=== PATIENT | female | born 1950 | race Caucasian/White ===

== ENCOUNTER 2018-11-25 15:49 | Emergency (ER) | payer BC ==
[2018-11-25] MEDS ORDERED: Ondansetron 4 MG Tab.DIS PO ONE (16:04)
--- NOTE | 2018-11-25 16:31 | EDM.PDOC ---
ED HPI GENERAL MEDICAL PROBLEM - General Chief Complaint: Gastrointestinal Problem Stated Complaint: VOMITING Time Seen by Provider: 11/25/18 16:04 Source of Information: Reports: Patient, RN Notes Reviewed History Limitations: Reports: No Limitations - History of Present Illness INITIAL COMMENTS - FREE TEXT/NARRATIVE: Patient is a 67 year old female who presents to the ED for the evaluation of vomiting and nausea. The patient states that this is been present all day and she's not been able to keep much down for foods or fluids. She was seen at the walk-in clinic earlier this morning and diagnosed with a urinary tract infection was given a prescription for antibiotics but was afraid to take them as she was not able to keep any water down. She did try to go back to the walk- in clinic but they told her that she was not able to be seen twice in 1 day. The patient states she is not having any abdominal pain, chest pain, shortness of breath, fevers or chills. - Related Data Allergies Allergy/AdvReac Type Severity Reaction Status Date / Time tramadol Allergy Joint Pain Verified 11/25/18 16:00 Home Meds: Home Meds Buprenorphine HCl/Naloxone HCl [Suboxone 4 mg-1 mg Sl Film] 1 - 2 dose PO ASDIRECTED 03/12/18 [History] Thyroid [[place] Thyroid] 60 mg PO DAILY 03/12/18 [History] clonazePAM [Klonopin] 1 - 2 mg PO DAILY PRN 03/12/18 [History] traZODone HCl [Trazodone HCl] 50 mg PO DAILY 03/12/18 [History] Ondansetron [Zofran ODT] 4 mg PO Q8H PRN #12 tab.dis 11/25/18 [Rx] Past Medical History Genitourinary History: Reports: Other (See Below) Other Genitourinary History: Cystitis Musculoskeletal History: Reports: Back Pain, Chronic, Other (See Below) Other Musculoskeletal History: Neck discectomy Psychiatric History: Reports: Anxiety, Depression, Psych Hospitalization(s) Endocrine/Metabolic History: Reports: Hypothyroidism Hematologic History: Reports: Blood Transfusion(s) Dermatologic History: Reports: Other (See Below) Other Dermatologic History: Pilar cyst removed - Infectious Disease History Infectious Disease History: Reports: Hepatitis B - Past Surgical History Female Surgical History: Reports: Hysterectomy, Oophorectomy Social & Family History - Tobacco Use Smoking Status *Q: Never Smoker - Caffeine Use Caffeine Use: Reports: None - Recreational Drug Use Recreational Drug Use: No - Living Situation & Occupation Living situation: Reports: Occupation: Employed (Self-employed) ED ROS GENERAL - Review of Systems Review Of Systems: See Below Constitutional: Denies: Fever, Chills HEENT: Reports: No Symptoms Respiratory: Denies: Shortness of Breath Cardiovascular: Denies: Chest Pain Endocrine: Reports: No Symptoms GI/Abdominal: Reports: Nausea. Denies: Abdominal Pain, Constipation, Diarrhea, Vomiting : Reports: Dysuria (diagnosed with UTI, on ABX) Skin: Reports: No Symptoms Neurological: Reports: No Symptoms Psychiatric: Reports: No Symptoms Hematologic/Lymphatic: Reports: No Symptoms Immunologic: Reports: No Symptoms ED EXAM, GI/ABD - Physical Exam Exam: See Below Exam Limited By: No Limitations General Appearance: Alert, WD/WN, No Apparent Distress Eyes: Bilateral: Normal Appearance Respiratory/Chest: No Respiratory Distress, Lungs Clear, Normal Breath Sounds, No Accessory Muscle Use, Chest Non-Tender, Prolonged Expiration Cardiovascular: Regular Rate, Rhythm, No Murmur GI/Abdominal Exam: Normal Bowel Sounds, Soft, Non-Tender, No Distention, No Mass Extremities: Normal Inspection, Normal Capillary Refill Neurological: Alert, Oriented, Normal Cognition, No Motor/Sensory Deficits Psychiatric: Normal Affect, Normal Mood Skin Exam: Warm, Dry, Intact, Normal Color, No Rash Course - Vital Signs Last Recorded V/S: Last Vital Signs Temp 98.0 F 11/25/18 15:57 Pulse 88 11/25/18 15:57 Resp 16 11/25/18 15:57 BP 139/94 H 11/25/18 15:57 Pulse Ox 93 L 11/25/18 15:57 - Orders/Labs/Meds Meds: Medications Discontinued Medications Generic Name Dose Route Start Last Admin Trade Name Freq PRN Reason Stop Dose Admin Ondansetron HCl 4 mg 11/25/18 16:04 11/25/18 16:22 Zofran Odt PO 11/25/18 16:05 4 mg ONETIME ONE Administration - Re-Assessments/Exams Free Text/Narrative Re-Assessment/Exam: 11/25/18 16:28 Patient presents to the ED for the evaluation of nausea and vomiting. I did order 4 mg ODT Zofran for initial management. Upon initial exam, the patient states that she was able to take a drink water and this actually stay down. So she took her first dose antibiotics. But she is afraid that she might develop nausea overnight, so I will provide the patient with some tablets of Zofran for the next couple days. Departure - Departure Time of Disposition: 16:29 Disposition: Home, Self-Care 01 Condition: Fair Clinical Impression: Nausea and vomiting Qualifiers: Vomiting type: unspecified Vomiting Intractability: non-intractable Qualified Code(s): R11.2 - Nausea with vomiting, unspecified - Discharge Information *PRESCRIPTION DRUG MONITORING PROGRAM REVIEWED*: No *COPY OF PRESCRIPTION DRUG MONITORING REPORT IN PATIENT JOSÉ ANTONIO: No Prescriptions: Ondansetron [Zofran ODT] 4 mg PO Q8H PRN #12 tab.dis PRN Reason: Nausea Instructions: Nausea and Vomiting, Adult, [id number] Referrals: Lalita De La Rosa PA-C [Primary Care Provider] - Additional Instructions: You were evaluated in the ED today for your nausea and vomiting. You were given a antinausea medication called Zofran in the ED and were sent home with a prescription, please take as directed. This medication was electronically prescribed to the [facility] pharmacy located on [address]. Please take your antibiotics as previously prescribed. Please follow all other discharge instructions as set forth by the provider who diagnosed with your UTI. Please return to the ED if your symptoms should change or worsen
== END 2018-11-25 16:45 | disposition home or self-care (01) ==
LOC: JD.ED 15:49
DX: R11.2 Nausea with vomiting, unspecified (principal); F32.9 Major depressive disorder, single episode, unspecified; F41.9 Anxiety disorder, unspecified; Z88.5 Allergy status to narcotic agent; Z79.899 Other long term (current) drug therapy; Z90.710 Acquired absence of both cervix and uterus; Z90.722 Acquired absence of ovaries, bilateral
CPT/HCPCS: 99283; A9270

== ENCOUNTER 2019-10-21 09:16 | Emergency (ER) | payer BC ==
[2019-10-21] MEDS ORDERED: Sodium Chloride 0.9% 10 ML Syringe FLUSH PRN (09:49)
[2019-10-21] MEDS ORDERED: cefTRIAXone 2 GM in Sodium Chloride 0.9% 100 ML IV ONE (09:50)
--- NOTE | 2019-10-21 11:25 | EDM.PDOC ---
ED HPI GENERAL MEDICAL PROBLEM - General Chief Complaint: Lower Extremity Injury/Pain Stated Complaint: SENT FOR IV Time Seen by Provider: 10/21/19 09:36 Source of Information: Reports: Patient History Limitations: Reports: No Limitations - History of Present Illness INITIAL COMMENTS - FREE TEXT/NARRATIVE: The patient presents with right ankle redness and swelling. She said last week she developed pain and redness with swelling to her right knee. It then moved to her right ankle. She has no fever or chills. Her doctor wanted her to come over to be evaluated. She has no recent injury to the ankle or knee. She has no cough, chest pain, shortness of breath, abdominal pain, nausea or vomiting. Onset: Gradual Duration: Day(s): Location: Reports: Lower Extremity, Right (knee and then ankle) Quality: Reports: Sharp Severity: Moderate Improves with: Reports: Immobilization Worsens with: Reports: Movement Context: Denies: Trauma Associated Symptoms: Reports: No Other Symptoms Right Lower Leg Pain Score (Numeric/FACES): 6 - Related Data Allergies Allergy/AdvReac Type Severity Reaction Status Date / Time tramadol Allergy Severe Joint Pain Verified 10/21/19 09:50 Home Meds: Home Meds Buprenorphine HCl/Naloxone HCl [Suboxone 4 mg-1 mg Sl Film] 1 - 2 dose PO ASDIRECTED 03/12/18 [History] Thyroid [[place] Thyroid] 60 mg PO DAILY 03/12/18 [History] clonazePAM [Klonopin] 1 - 2 mg PO DAILY PRN 03/12/18 [History] traZODone HCl [Trazodone HCl] 50 mg PO DAILY 03/12/18 [History] Ondansetron [Zofran ODT] 4 mg PO Q8H PRN #12 tab.dis 11/25/18 [Rx] Past Medical History Genitourinary History: Reports: Other (See Below) Other Genitourinary History: Cystitis Musculoskeletal History: Reports: Back Pain, Chronic, Other (See Below) Other Musculoskeletal History: Neck discectomy Psychiatric History: Reports: Anxiety, Depression, Psych Hospitalization(s) Endocrine/Metabolic History: Reports: Hypothyroidism Hematologic History: Reports: Blood Transfusion(s) Dermatologic History: Reports: Other (See Below) Other Dermatologic History: Pilar cyst removed - Infectious Disease History Infectious Disease History: Reports: Hepatitis B - Past Surgical History Female Surgical History: Reports: Hysterectomy, Oophorectomy Social & Family History - Tobacco Use Smoking Status *Q: Light Tobacco Smoker Years of Tobacco use: 30 Packs/Tins Daily: 0.2 - Caffeine Use Caffeine Use: Reports: Coffee - Living Situation & Occupation Living situation: Reports: Occupation: Employed (Self-employed) Review of Systems - Review of Systems Review Of Systems: See Below Constitutional: Reports: No Symptoms Eyes: Reports: No Symptoms Ears: Reports: No Symptoms Nose: Reports: No Symptoms Mouth/Throat: Reports: No Symptoms Respiratory: Reports: No Symptoms Cardiovascular: Reports: No Symptoms GI/Abdominal: Reports: No Symptoms Genitourinary: Reports: No Symptoms Musculoskeletal: Reports: Other (Right ankle swelling, pain and redness) ED EXAM, GENERAL - Physical Exam Exam: See Below Exam Limited By: No Limitations General Appearance: Alert, No Apparent Distress Ears: Normal External Exam Nose: Normal Inspection Head: Atraumatic, Normocephalic Neck: Normal Inspection Respiratory/Chest: No Respiratory Distress, Lungs Clear, Normal Breath Sounds Cardiovascular: Regular Rate, Rhythm, No Edema, No Murmur GI/Abdominal: Soft, Non-Tender, No Organomegaly, No Mass Extremities: Other (No pain upon palpation, edema or redness to the right knee. Erythema, edema and pain upon palpation to the right ankle. Good sensation and pulses distally.) Course - Vital Signs Last Recorded V/S: Last Vital Signs Temp 98.6 F 10/21/19 09:47 Pulse 86 10/21/19 09:47 Resp 20 10/21/19 09:47 BP 128/81 10/21/19 09:47 Pulse Ox 100 10/21/19 09:47 - Orders/Labs/Meds Orders: Active Orders 24 hr Category Date Time Status Peripheral IV Care [RC] . DIRECTED Care 10/21/19 09:50 Active Sodium Chloride 0.9% [Saline Flush] Med 10/21/19 09:49 Active 10 ml FLUSH ASDIRECTED PRN Peripheral IV Insertion Adult [OM.PC] Stat Oth 10/21/19 09:49 Ordered Medication Orders Sodium Chloride (Saline Flush) 10 ml FLUSH ASDIRECTED PRN PRN Reason: Keep Vein Open Last Admin: 10/21/19 10:15 Dose: 10 ml Documented by: CHINO Meds: Medications Generic Name Dose Route Start Last Admin Trade Name Artemio PRN Reason Stop Dose Admin Sodium Chloride 10 ml 10/21/19 09:49 10/21/19 10:15 Saline Flush FLUSH 10 ml ASDIRECTED PRN Administration Keep Vein Open Discontinued Medications Generic Name Dose Route Start Last Admin Trade Name Artemio PRN Reason Stop Dose Admin Ceftriaxone Sodium 2 gm/ 100 mls @ 200 mls/hr 10/21/19 09:50 10/21/19 10:15 Sodium Chloride IV 10/21/19 10:19 200 mls/hr ONETIME ONE Administration - Re-Assessments/Exams Free Text/Narrative Re-Assessment/Exam: 10/21/19 11:24 I ordered IV saline lock, labs and rocephin 2 grams IV. Lab came in to draw labs and the patient got upset. She left without completing care. Departure - Departure Time of Disposition: 11:25 Disposition: Against Medical Advice 07 Condition: Good Clinical Impression: Cellulitis of right ankle - Discharge Information Referrals: Lalita De La Rosa, KOBY [Primary Care Provider] - Sepsis Event Note (ED) - Evaluation Sepsis Screening Result: No Definite Risk - Focused Exam Vital Signs: Vital Signs Temp Pulse Resp BP Pulse Ox 10/21/19 09:47 98.6 F 86 20 128/81 100 - My Orders Last 24 Hours: My Active Orders 10/21/19 09:49 Sodium Chloride 0.9% [Saline Flush] 10 ml FLUSH ASDIRECTED PRN Peripheral IV Insertion Adult [OM.PC] Stat 10/21/19 09:50 Peripheral IV Care [RC] . DIRECTED - Assessment/Plan Last 24 Hours: My Active Orders 10/21/19 09:49 Sodium Chloride 0.9% [Saline Flush] 10 ml FLUSH ASDIRECTED PRN Peripheral IV Insertion Adult [OM.PC] Stat 10/21/19 09:50 Peripheral IV Care [RC] . DIRECTED
== END 2019-10-21 11:05 | disposition left against medical advice (07) ==
LOC: JD.ED 09:16
DX: L03.115 Cellulitis of right lower limb (principal); F17.210 Nicotine dependence, cigarettes, uncomplicated; F41.9 Anxiety disorder, unspecified; F32.9 Major depressive disorder, single episode, unspecified; E03.9 Hypothyroidism, unspecified; Z79.899 Other long term (current) drug therapy; Z88.5 Allergy status to narcotic agent
CPT/HCPCS: 96365; 99283; J0696; J7050

== ENCOUNTER 2023-05-10 18:46 | Emergency (ER) | payer MEDICARE, OTHER | END 2023-05-10 20:22 | disposition home or self-care (01) | LOC: JD.ED 18:46 | DX: S00.451A Superficial foreign body of right ear, initial encounter (principal); E03.9 Hypothyroidism, unspecified; Z88.5 Allergy status to narcotic agent | CPT/HCPCS: 69209; 99282 ==